=== PATIENT | female | born 1975 | race African-American/Black ===

== ENCOUNTER 2017-07-19 18:01 | Emergency (ER) | payer OTHER ==
[2017-07-19 18:03] VITALS: BP 114/83; PULSE 68; TEMP 98.4; BMI 24.9
[2017-07-19] MEDS ORDERED: predniSONE 20 MG TABLET (UD) PO ONE (19:18)
[2017-07-19] MEDS ORDERED: ACETAMINOPHEN 500 MG TABLET (FP) PO ONE (19:18)
[2017-07-19] MEDS ORDERED: predniSONE 20 MG TABLET (UD) ONE (19:23)
[2017-07-19] MEDS ORDERED: ACETAMINOPHEN 500 MG TABLET (FP) ONE (19:23)
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
== END 2017-07-19 20:16 | disposition home or self-care (01) ==
LOC: JERFT 18:01
DX: M54.5 Low back pain (principal); M54.2 Cervicalgia; V49.49XA Driver injured in collision with other motor vehicles in traffic accident, initial encounter; Y92.414 Local residential or business street as the place of occurrence of the external cause; Y93.89 Activity, other specified; Y99.9 Unspecified external cause status
CPT/HCPCS: 99281-25

== ENCOUNTER 2018-12-14 10:09 | Emergency (ER) | payer OTHER ==
[2018-12-14 10:21] VITALS: BP 116/74; PULSE 81; TEMP 98.4; BMI 24.0
[2018-12-14] MEDS ORDERED: IBUPROFEN 600 MG TABLET (FP) PO ONE ×2 (11:14→11:16)
[2018-12-14] MEDS ORDERED: DIPHTH,PERTUSS(ACELL),TET 0.5 ML DISP.SYRIN IM ONE ×2 (11:14→11:16)
--- NOTE | 2018-12-14 11:14 | PDOC ---
History of Present Illness - General Chief Complaint: Bite Stated Complaint: DOG BITE Time Seen by Provider: 12/14/18 10:42 History Source: Patient Exam Limitations: No Limitations - History of Present Illness Initial Comments: 12/14/18 11:49 Patient is a 43-year-old female who presents to the ER today for dog bite/ scratch. Patient states that she was out walking her dog when a unleashed dog ran towards her. She started to run with her dog when she fell. She states that her dog then jumped over her to protect her. She is unsure whether her dog bit her or scratched her. The other dog was a pet. Denies hitting her head, loss of consciousness, dizziness. Her dog is up-to-date on its rabies vaccines. Past History - Travel Traveled outside of the country in the last 30 days: No Close contact w/someone who was outside of country & ill: No - Past Medical History Allergies/Adverse Reactions: Allergies Allergy/AdvReac Type Severity Reaction Status Date / Time ketorolac tromethamine Allergy Rash Verified 12/14/18 10:19 [From Toradol] Home Medications: Ambulatory Orders Amox-Tr/K Cl [Augmentin - 875Mg Tablet] 1 tab PO BID #14 tablet 12/14/18 Anemia: No Asthma: No Cancer: No Cardiac Disorders: No CVA: No COPD: No CHF: No Dementia: No Diabetes: No GI Disorders: No Disorders: No HTN: No Hypercholesterolemia: No Liver Disease: No Seizures: No Thyroid Disease: No - Surgical History Abdominal Surgery: No Appendectomy: No Cardiac Surgery: No Cholecystectomy: No Lung Surgery: No Neurologic Surgery: No Orthopedic Surgery: Yes (BUNIONECTOMY-LEFT -1996, RIGHT X 3-1996,1998,2002) - Reproductive History (#): 3 Para: 1 - Suicide/Smoking/Psychosocial Hx Smoking Status: No Smoking History: Never smoked Have you smoked in the past 12 months: No Number of Cigarettes Smoked Daily: 0 Hx Alcohol Use: No Drug/Substance Use Hx: No Substance Use Type: None Hx Substance Use Treatment: No Review of Systems - Review of Systems Able to Perform ROS?: Yes Comments:: 12/14/18 11:11 CONSTITUTIONAL: Absent: fever, chills, diaphoresis, generalized weakness, malaise, loss of appetite HEENT: Absent: rhinorrhea, nasal congestion, throat pain, throat swelling, difficulty swallowing, mouth swelling, ear pain, eye pain, visual Changes CARDIOVASCULAR: Absent: chest pain, loss of consciousness, palpitations, irregular heart rate, peripheral edema RESPIRATORY: Absent: cough, shortness of breath, dyspnea with exertion, orthopnea, wheezing, stridor, hemoptysis GASTROINTESTINAL: Absent: abdominal pain, abdominal distension, nausea, vomiting, diarrhea, constipation, melena, hematochezia GENITOURINARY: Absent: dysuria, frequency, urgency, hesitancy, hematuria, flank pain, genital pain MUSCULOSKELETAL: Absent: myalgia, arthralgia, joint swelling SKIN: Present: dog bite Absent: rash, itching, pallor HEMATOLOGIC/IMMUNOLOGIC: Absent: easy bleeding, easy bruising, lymphadenopathy, frequent infections ENDOCRINE: Absent: unexplained weight gain, unexplained weight loss, heat intolerance, cold intolerance NEUROLOGIC: Absent: headache, focal weakness or paresthesias, dizziness, unsteady gait, seizure, mental status changes, bladder or bowel incontinence PSYCHIATRIC: Absent: anxiety, depression, suicidal or homicidal ideation, hallucinations. Is the patient limited [place]ian proficient: No *Physical Exam - Vital Signs Last Vital Signs Temp Pulse Resp BP Pulse Ox 98.4 F 81 20 116/74 98 12/14/18 10:19 12/14/18 10:19 12/14/18 10:19 12/14/18 10:19 12/14/18 10:19 - Physical Exam Comments: 12/14/18 11:11 GENERAL: Well developed, well nourished. Awake and alert. No acute distress. HEENT: Normocephalic, atraumatic. PERRLA, EOMI. No conjunctival pallor. Sclera are non- icteric. Moist mucous membranes. Oropharynx is clear. NECK: Supple. Full ROM. No JVD. Carotid pulses 2+ and symmetric, without bruits. No thyromegaly. No lymphadenopathy. MUSCULOSKELETAL Normal range of motion at all joints. No bony deformities or tenderness. No CVA tenderness. EXTREMITIES: No cyanosis. No clubbing. No edema. No calf tenderness. SKIN: Three puncture wounds approximately 0.5cm to the medial L thigh. Bleeding controlled prior to arrival. Warm and dry. Normal capillary refill. No rashes. No jaundice. NEUROLOGICAL: Alert, awake, appropriate. Cranial nerves 2-12 intact. No deficits to light touch and temperature in face, upper extremities and lower extremities. No motor deficits in the in face, upper extremities and lower extremities. Normoreflexic in the upper and lower extremities. Normal speech. Toes are down- going bilaterally. Gait is normal without ataxia. PSYCHIATRIC: Cooperative. Good eye contact. Appropriate mood and affect. Moderate Sedation - Procedure Monitoring Vital Signs: Procedure Monitoring Vital Signs Temperature 98.4 F 12/14/18 10:19 Pulse Rate 81 12/14/18 10:19 Respiratory Rate 20 12/14/18 10:19 Blood Pressure 116/74 12/14/18 10:19 O2 Sat by Pulse Oximetry (%) 98 12/14/18 10:19 Medical Decision Making - Medical Decision Making 12/14/18 11:51 Patient is a 43-year-old female who presents to the ER for dog bite to her left medial thigh sustained this morning. On exam patient with 3 puncture wounds to the left medial thigh. Each wound was cleaned under high pressure with normal saline. Telfa dressing and Neto wrap applied Rabies vaccinations not indicated at this time as patient was bit/scratched by her dog. Tetanus shot updated, will start Augmentin Discharge home I discussed the physical exam findings, ancillary test results and final diagnoses with the patient. I answered all of the patient's questions. The patient was satisfied with the care received and felt comfortable with the discharge plan and treatment plan. The Patient agrees to follow up with the primary care physician/specialist within 24-72 hours. Return precautions were given. *DC/Admit/Observation/Transfer Diagnosis at time of Disposition: Dog bite Qualifiers: Encounter type: initial encounter Qualified Code(s): W54.0XXA - Bitten by dog, initial encounter - Discharge Dispostion Disposition: HOME Condition at time of disposition: Stable Decision to Admit order: No - Prescriptions Prescriptions: Amox-Tr/K Cl [Augmentin - 875Mg Tablet] 1 tab PO BID #14 tablet - Referrals Referrals: Inocente Carrion MD [Staff Physician] - - Patient Instructions Printed Discharge Instructions: DI for Animal Bites Additional Instructions: You were bit or scratched by your dog Keep the area clean and dry today Keep the pressure over the area Take the antibiotics twice a day for one week You may take Motrin 600mg every 6 hours as needed for pain You may use bacitracin on the area tomorrow Follow up with your primary care doctor in one week Return to the ED for increased pain, swelling to the leg, redness around the site, purulent drainage, or if you have any changes in your symptoms - Post Discharge Activity
== END 2018-12-14 11:53 | disposition home or self-care (01) ==
LOC: JERFT 10:09
PROC: 3E0234Z Introduction of Serum, Toxoid and Vaccine into Muscle, Percutaneous Approach (ICD-10-PCS; principal; 2018-12-14)
DX: S71.152A Open bite, left thigh, initial encounter (principal); W54.0XXA Bitten by dog, initial encounter; Y93.89 Activity, other specified; Y92.89 Other specified places as the place of occurrence of the external cause
CPT/HCPCS: 90471; 90715; 99281-25

== ENCOUNTER 2020-09-30 16:02 | Emergency (ER) | payer OTHER ==
[2020-09-30 16:12] VITALS: BP 135/68; PULSE 52; TEMP 97; BMI 26.2
[2020-09-30] MEDS ORDERED: IBUPROFEN 600 MG TABLET (FP) PO ONE ×2 (16:27→16:28)
== END 2020-09-30 18:10 | disposition home or self-care (01) ==
LOC: JERFT 16:02
PROC: 2W3GX1Z Immobilization of Right Thumb using Splint (ICD-10-PCS; principal; 2020-09-30)
DX: S62.501A Fracture of unspecified phalanx of right thumb, initial encounter for closed fracture (principal)
CPT/HCPCS: 73130-TC-RT-FY; 99283-25

== ENCOUNTER 2021-10-28 09:26 | Emergency (ER) | payer OTHER ==
[2021-10-28 10:15] VITALS: BP 110/77; PULSE 81; TEMP 98; BMI 24.9
[2021-10-29 11:07] LABS: SARS-CoV-2 NAA Detected (Not Detected)
== END 2021-10-28 11:52 | disposition home or self-care (01) ==
LOC: JER 09:26
DX: U07.1 COVID-19 (principal)
CPT/HCPCS: 99283-25; C9803; U0003; U0005

== ENCOUNTER 2021-11-21 22:36 | Emergency (ER) | payer OTHER ==
[2021-11-21 22:51] VITALS: BP 126/79; PULSE 73; TEMP 97.6; BMI 24.7
[2021-11-22] MEDS ORDERED: LIDOCAINE 5% TOPICAL PATCH TP ONE (00:18)
[2021-11-22] MEDS ORDERED: ACETAMINOPHEN 325 MG TABLET (FP) PO ONE (00:18)
[2021-11-22] MEDS ORDERED: ACETAMINOPHEN 325 MG TABLET (FP) ONE (00:56)
[2021-11-22] MEDS ORDERED: LIDOCAINE 5% TOPICAL PATCH ONE (00:56)
[2021-11-22] MEDS ORDERED: LIDOCAINE PATCH REMOVAL MC SCH (22:00)
== END 2021-11-22 03:40 | disposition left against medical advice (07) ==
LOC: JER 22:36
DX: R51.9 Headache, unspecified (principal); M54.2 Cervicalgia; V49.40XA Driver injured in collision with unspecified motor vehicles in traffic accident, initial encounter
CPT/HCPCS: 72128-TC; 99284-25

== ENCOUNTER 2021-11-30 12:45 | Emergency (ER) | payer OTHER ==
[2021-11-30 13:05] VITALS: BP 119/75; PULSE 77; TEMP 98.2; BMI 24.0
[2021-11-30] MEDS ORDERED: ACETAMINOPHEN 500 MG TABLET (FP) PO ONE (15:03)
== END 2021-11-30 15:14 | disposition home or self-care (01) ==
LOC: JERFT 12:45
DX: S46.912A Strain of unspecified muscle, fascia and tendon at shoulder and upper arm level, left arm, initial encounter (principal); M54.50 Low back pain, unspecified; W01.0XXA Fall on same level from slipping, tripping and stumbling without subsequent striking against object, initial encounter
CPT/HCPCS: 73030-TC-LT-FY; 99283-25

== ENCOUNTER 2022-08-29 09:14 | Emergency (ER) | payer OTHER ==
[2022-08-29 09:27] VITALS: BP 119/82; PULSE 91; RESP 18; TEMP 100.1; BMI 26.6
[2022-08-29] MEDS ORDERED: ONDANSETRON *ODT* 4 MG TABLET SL ONE (09:49)
[2022-08-29] MEDS ORDERED: ONDANSETRON *ODT* 4 MG TABLET ONE (10:08)
[2022-08-29] MEDS ORDERED: IBUPROFEN 600 MG TABLET (FP) PO ONE ×2 (10:11→10:32)
== END 2022-08-29 11:39 | disposition home or self-care (01) ==
LOC: JER 09:14
DX: U07.1 COVID-19 (principal)
CPT/HCPCS: 0241U-QW; 99283-25; Q0162

== ENCOUNTER 2023-07-28 11:05 | Emergency (ER) | payer OTHER ==
[2023-07-28 11:53] VITALS: BP 114/80; PULSE 79; RESP 18; TEMP 98; BMI 27.4
[2023-07-28] MEDS ORDERED: IBUPROFEN 600 MG TABLET (FP) PO ONE ×2 (12:27→12:30)
== END 2023-07-28 14:53 | disposition home or self-care (01) ==
LOC: JERFT 11:05
DX: M25.511 Pain in right shoulder (principal); M25.512 Pain in left shoulder; M25.562 Pain in left knee; M25.561 Pain in right knee; V28.41XA Electric (assisted) bicycle driver injured in noncollision transport accident in traffic accident, initial encounter; Y92.410 Unspecified street and highway as the place of occurrence of the external cause
CPT/HCPCS: 71046-TC-FY; 72170-TC-FY; 73060-TC-LT-FY; 73560-TC-LT-FY; 73560-TC-RT-FY; 73590-TC-LT-FY; 99284-25

== ENCOUNTER 2023-11-11 18:10 | Emergency (ER) | payer OTHER ==
[2023-11-11 18:20] VITALS: BP 142/91; TEMP 98.1; BMI 29.2
[2023-11-11] MEDS ORDERED: ACETAMINOPHEN 500 MG TABLET (FP) ONE (21:35)
[2023-11-11] MEDS ORDERED: ACETAMINOPHEN 500 MG TABLET (FP) PO ONE (21:37)
[2023-11-11] MEDS ORDERED: IBUPROFEN 600 MG TABLET (FP) PO ONE ×2 (22:43→22:46)
[2023-11-11 22:48] VITALS: PULSE 88; RESP 16
== END 2023-11-11 22:50 | disposition home or self-care (01) ==
LOC: JERFT 18:10
DX: S83.91XA Sprain of unspecified site of right knee, initial encounter (principal); W01.0XXA Fall on same level from slipping, tripping and stumbling without subsequent striking against object, initial encounter
CPT/HCPCS: 73562-TC-RT-FY; 99283-25